=== PATIENT | female | born 1975 | race Two or more races ===

== ENCOUNTER 2023-12-10 09:37 | Outpatient (REF) | payer OTHER, SELFPAY ==
[2023-12-11 01:50] LABS: CT PCR NOT DETECTED (Not Detect.); NG PCR NOT DETECTED (Not Detect.)
[2023-12-11 14:50] LABS: BV Int Neg Control Negative (Negative); BV Int Pos Control Positive (Positive)
[2023-12-17 22:08] LABS: HPV mRNA E6/E7 rflx Not Detected (Not Detected)
== END 2023-12-10 09:38 | disposition home or self-care (01) ==
LOC: HO.LAB 09:37
PROVIDERS: PCP Family Medicine; Visit Provider Advanced Practice Midwife
DX: Z01.419 Encounter for gynecological examination (general) (routine) without abnormal findings (principal); Z11.51 Encounter for screening for human papillomavirus (HPV); Z20.2 Contact with and (suspected) exposure to infections with a predominantly sexual mode of transmission; N95.1 Menopausal and female climacteric states; I10 Essential (primary) hypertension
CPT/HCPCS: 0353U; 87480; 87510; 87624; 87660; 88142

== ENCOUNTER 2023-12-10 09:37 | Outpatient (AMB) | payer OTHER, SELFPAY ==
--- NOTE | 2023-12-10 09:55 | MHC.OFFVIS ---
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 Support Manager Required: No Information Interpreted: clinical only Contract Administration Coordinator: Contract Administration Coordinator Present Allergies No Known Allergies Allergy (Verified 12/10/23 10:06) Medication List - Last Reconciled 12/10/23 by Evonne Lauren CNM atenolol 50 mg PO DAILY buspirone 5 mg PO BID hydroxyzine HCl 25 mg PO BEDTIME lisinopril 5 mg PO DAILY Is last menstrual period known: Yes (09/21/23) Do you need a note to return to daycare/school/sports/work: No HPI 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 Harris and his group until he left pre pandemic she sees Dr. Virginia Joiner at [facility] in [place] for primary care she has been on blood pressure medicine for couple of years and her goal is to get off of it she has been walking/running regularly to try and get healthier and eat healthier she has lifted weights in the past for exercise as well. She has been getting hot flashes and her last period was in September. She had very regular periods up until then she is monogamous in her relationship and has raised all of her children with her and has no worries but is open to testing with the Pap smear but declines blood work. 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 [facility] Medical History (Updated 12/10/23 @ 10:46 by Evonne Lauren CNM) Anxiety Migraines HTN (hypertension) History of gallbladder disease Surgical History (Updated 12/10/23 @ 10:10 by Jonny Souza [facility]) History of bilateral tubal ligation Female Reproductive History Menstrual Age of Menarche: 11 Duration of menses: 3-5 days control method: permanent sterilization Total pregnancies: 6 Full term: 4 Date of last pap smear: 11/05/21 (negative per patient) History of abnormal pap smear: Yes (1991) Physical Exam Vital Signs: Last Vital Signs BP 122/70 12/10/23 10:04 BMI result Body Mass Index 30.6 Const General: healthy appearing, comfortable, no acute distress, well developed and alert Nutritional Appearance: average body habitus Orientation/consciousness: patient oriented x3 Limitations: no limitations HEENT Head: Yes normocephalic Neck Neck: Yes normal visual inspection Chest Chest palpation & inspection: normal inspection of the chest Breast/axilla inspection: normal inspection of the breasts and normal inspection of the axillae Breast/axilla palpation: normal palpation of the breasts and normal palpation of the axillae Resp Effort & Inspection: normal respiratory effort GI Inspection: Yes normal to inspection, No Abdominal wall edema and No distended Palpation (GI): Soft to palpation and nontender Other: External exam within normal limits vagina pink moist cervix multiparous pink smooth healthy with very abundant clear mucus consistent with fertile mucus. (reviewed with patient). Uterus small mobile anteverted nontender adnexa nontender very good tone with Kegel. General: Yes bladder normal to palpation External Female Exam: normal external appearance and normal appearance of the urethra Speculum Exam - Vagina: normal appearance of the vagina, normal palpation and normal vaginal discharge Speculum Exam - Cervix: normal appearance of the cervix, normal palpation and nontender Bimanual exam- vagina & uterus: normal bimanual exam, normal palpation, uterine size normal, bladder normal to palpation, consistency normal, normal palpation, uterine mobility normal, uterine shape normal, No Cervical tenderness present, non-tender and no cervical motion tenderness Bimanual Exam- Adnexa, other: normal adnexae, no masses, normal and No adnexal tenderness Neuro General: patient oriented x3 Assessment & Plan Assessment & Plan (1) Cervical cancer screening: Comment: History 1 abnormal 1991; normal since; 1st Pap here done 12/10/2023. Code(s): Z12.4 - Encounter for screening for malignant neoplasm of cervix (2) Well woman exam with routine gynecological exam: Code(s): Z01.419 - Encounter for gynecological examination (general) (routine) without abnormal findings (3) Breast cancer screening: Code(s): Z12.39 - Encounter for other screening for malignant neoplasm of breast (4) Perimenopause: Code(s): N95.1 - Menopausal and female climacteric states (5) HTN (hypertension): Code(s): I10 - Essential (primary) hypertension Plan -----Discussed in this visit the following: healthy balanced diet, regular and consistent exercise, getting recommended health screens, doing the best she can for her particular health concerns, nicole exercises, pap smear screening and followup recommendations, mammography screening and SBE, normal changes in cycles in her life stage--- . Reviewed self-care reviewed Nicole's she is very good strength with them reviewed perimenopause in detail and she is not interested it any rate in any medicinal solution and it is her goal to get off of her blood pressure medicine as well. She has been on the blood pressure medicine for couple of years now. She is working to achieve her best health. 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 Be seeing her primary care provider at the end of the month as well. Orders: Orders MM tomosynthesis screening BI Today N95.1 - Menopausal and female climacteric states, Z01.419 - Encounter for gynecological examination (general) (routine) without abnormal findings, Z12.31 - Encounter for screening mammogram for malignant neoplasm of breast, Z12.39 - Encounter for other screening for malignant neoplasm of breast, Z12.4 - Encounter for screening for malignant neoplasm of cervix Coding Level of Care Code New Pt Prev Care 40-64y(86518) Diagnoses Cervical cancer screening Z12.4 Well woman exam with routine gynecological exam Z01.419 Breast cancer screening Z12.39 Perimenopause N95.1 HTN (hypertension) I10
[2023-12-10 10:04] VITALS: BP 122/70; BMI 30.6
== END 2023-12-10 10:47 | disposition home or self-care (01) ==
LOC: HO.HWSM 09:38
PROVIDERS: PCP Family Medicine; Visit Provider Advanced Practice Midwife
DX: Z12.4 Encounter for screening for malignant neoplasm of cervix (principal); Z01.419 Encounter for gynecological examination (general) (routine) without abnormal findings; Z12.39 Encounter for other screening for malignant neoplasm of breast; N95.1 Menopausal and female climacteric states; I10 Essential (primary) hypertension
CPT/HCPCS: 99386

== ENCOUNTER 2024-02-19 07:59 | Outpatient (REF) | payer OTHER, SELFPAY | END 2024-02-19 08:00 | disposition home or self-care (01) | LOC: HO.MAMMO 07:59 | PROVIDERS: PCP Family Medicine; Visit Provider Advanced Practice Midwife | DX: Z12.31 Encounter for screening mammogram for malignant neoplasm of breast (principal) | CPT/HCPCS: 77063; 77067 ==

== ENCOUNTER → 2024-02-19 08:15 | Outpatient (BNV) | payer OTHER, SELFPAY | PROVIDERS: PCP Family Medicine; Visit Provider Radiology Diagnostic Radiology | DX: Z12.31 Encounter for screening mammogram for malignant neoplasm of breast (principal) | CPT/HCPCS: 77063; 77067 ==

== ENCOUNTER 2024-12-11 13:51 | Outpatient (REF) | payer OTHER, SELFPAY ==
--- OUTSIDE RECORDS SUMMARY | 2024-12-11 16:06 | XMS_ITS | Clinical Summary ---
Author Organization [facility] ity Address [address] [place] [address] Care Team Providers Care Supervisor Curing Room Name Role Phone Unavailable Primary Care Provider [...] Procedure Name Priority Date/Time Associated Diagnosis Comments [facility] SCREENING DIGITAL Routine 07/13/2020 3:24 PM EDT Encounter for screening mammogram for malignant neoplasm of breast from Last 3 Months or Most Recently Relevant to Health Maintenance Results * [facility] SCREENING DIGITAL (07/13/2020 3:24 PM EDT) Anatomical Region Laterality Modality Mammography 07/13/2020 10:5 2 AM EDT Narrative 07/13/2020 3:24 PM EDT [facility] Diagnostic Imaging Department [address] [place] [address] Patient: ??ERICA CHÁVEZ ?/Age/Sex: 1975 - 44 - F Unit#: ??[id number] ? Location/Status: ??SPDIMAM/REG CLI ? Mnemonic/Ordering Site: ??DIGSC/SPMAM Ordering Physician: ??MOMO CHANDLER MD [facility] Screening Digital - 07/13/20 - 1111 EXAM: [facility] Screening Digital EXAM DATE AND TIME: 07/13/2020 11:12 AM HISTORY: ??Annual screening mammography. ??Family history of breast carcinoma in a nonspecified relative. ??Intermittent left lateral breast pain without palpable abnormality. COMPARISON: ??06/22/2017 TECHNIQUE: CC and MLO views of both breasts were obtained using full field digital mammography. Bilateral digital breast tomosynthesis was performed in the MLO projection. Computer aided detection with the [employer].2Zidoff eCommerce was employed. TISSUE DENSITY: d. The breasts [...] Routine screening mammogram BILATERAL in 1 year. 41655, 32805 3341F, 7025F Dictating Physician: ??OLENA EAST MD Electronically Signed by: ??OLENA EAST MD Dic Date/Time: ??07/13/20 1518 Sign date/Time: ??07/13/20 1524 Procedure Note Miryam East MD - 09/25/2022 [facility] Diagnostic Imaging Department [address] [place] [address] Patient: ERICA CHÁVEZ /Age/Sex: 1975 - 44 - F Unit#: [id number] Location/Status: [facility] CLI Mnemonic/Ordering Site: [facility] Ordering Physician: MOMO CHANDLER MD [facility] Screening Digital - 07/13/20 - 1111 EXAM: [facility] Screening Digital EXAM DATE AND TIME: 07/13/2020 11:12 AM HISTORY: Annual screening mammography. Family history of breastcarcinoma in a nonspecified relative. Intermittent left lateral breast pain withoutpalpable abnormality. COMPARISON: 06/22/2017 TECHNIQUE: CC and MLO views of both breasts were obtained using fullfield digital mammography. Bilateral digital breast tomosynthesis was performedin the MLO projection. Computer aided detection with the Zvents 7.2-VisualXcriptas employed. TISSUE DENSITY: d. The breasts are [...] Routine screening mammogram BILATERAL in 1 year. 68724, 50852 3341F, 7025F Dictating Physician: OLENA EAST MD Electronically Signed by: OLENA EAST MD Dic Date/Time: 07/13/20 1518 Sign date/Time: 07/13/20 1524 us Momo Chandler MD IMG BI PROCEDURES Final Re sult from Last 3 Months or Most Recently Relevant to Health Maintenance
== END 2024-12-11 13:52 | disposition home or self-care (01) ==
LOC: HO.LAB 13:51
PROVIDERS: PCP Family Medicine; Visit Provider Obstetrics & Gynecology
DX: Z13.89 Encounter for screening for other disorder (principal)

== ENCOUNTER 2024-12-11 13:51 | Outpatient (AMB) | payer OTHER, SELFPAY ==
--- NOTE | 2024-12-11 13:58 | A.OFFVIS_ITS ---
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 Complaining of infrequent menses Over the last year associated with hot flashes Last Pap/HPV was negative in 12/28 Last Mammogram was BI-RADS 1 in 02/27 Last Colonoscopy was in 09/29, the recommendation was to repeat in 7 years according to the patient, no records available [facility] Medical History Anxiety Migraines HTN (hypertension) History of gallbladder disease Surgical History History of bilateral tubal ligation Family History Maternal Aunt Breast cancer Female Reproductive History Menstrual Age of Menarche: 11 Date of last menstrual period: 05/17/24 Total pregnancies: 6 Full term: 4 Ab induced: 1 Ab spontaneous: 1 Date of last pap smear: 12/10/23 (negative pap smear, negative hpv ) Date of Mammogram: 02/19/24 Review of Systems Const All systems reviewed & are unremarkable except as noted in HPI and below Card Reports as per HPI Resp Reports as per HPI GI Reports as per HPI and Reports no additional complaints Reports as per HPI Physical Exam Const General: cooperative, healthy appearing and comfortable Chest Chest palpation & inspection: normal inspection of the chest and normal palpation of entire chest wall Breast/axilla inspection: normal inspection of the breasts and normal inspection of the axillae Breast/axilla palpation: normal palpation of the breasts, normal palpation of the axillae and no axillary lymphadenopathy Resp Effort & Inspection: normal respiratory effort Auscultation: clear to auscultation bilaterally Percussion: percussion normal Cardio Palpation: normal PMI Rate: regular rate Rhythm: regular rhythm Heart sounds: no murmurs and no rubs Peripheral pulses: Peripheral pulses 2+ throughout GI Inspection: Yes normal to inspection Palpation (GI): Soft to palpation, nontender, no guarding, not rigid and No hepatosplenomegaly present Percussion: Yes normal to percussion Auscultation: normal bowel sounds Rectal Exam - Female: deferred General: Yes bladder normal to palpation External Female Exam: No lesion Speculum Exam - Vagina: normal appearance of the vagina, normal palpation, normal vaginal discharge and not erythematous Speculum Exam - Cervix: normal appearance of the cervix and normal palpation Bimanual exam- vagina & uterus: normal bimanual exam, normal palpation, uterine size normal, bladder normal to palpation, consistency normal and normal palpation Bimanual Exam- Adnexa, other: normal adnexae, no masses and no tenderness Assessment & Plan Assessment & Plan (1) Abnormal uterine bleeding: Code(s): N93.9 - Abnormal uterine and vaginal bleeding, unspecified Category: Medical Plan: Screening mammogram. GC and chlamydia taken CBC, TSH, HCG, FSH/LH and pelvic ultrasound ordered. Discussed with the patient the different causes of abnormal bleeding including thyroid disorders, uterine and ovarian pathology, endometrial hyperplasia, carcinoma and other potential causes. Discussed with the patient the work up including CBC (to r/o anemia), TSH, FSH/LH, pelvic Ultrasound, endometrial biopsy to r/o endometrial pathology. All questions answered and the patient verbalized understanding. Instructed the patient to schedule an appointment for an endometrial biopsy in 2 weeks. (2) Well woman exam with routine gynecological exam: Code(s): Z01.419 - Encounter for gynecological examination (general) (routine) without abnormal findings Category: Medical Plan: Co testing not indicated this year. Counseled the patient about the recommended dietary allowance of 1200 mg of Calcium & 600 IU of vitamin D. Mammogram ordered. The patient was instructed to perform monthly self-breast exams and schedule annual exam in a year. All questions answered and the patient verbalized understanding. Orders: Orders Complete Blood Count no Diff Today N93.9 - Abnormal uterine and vaginal bleeding, unspecified HCG Quantitative Today N93.9 - Abnormal uterine and vaginal bleeding, unspecified US pelvic and transvaginal Today N93.9 - Abnormal uterine and vaginal bleeding, unspecified TSH reflex Free T4 Today N93.9 - Abnormal uterine and vaginal bleeding, unspecified Lutenizing Hormone Today N93.9 - Abnormal uterine and vaginal bleeding, unspecified Follicle Stimulating Hormone Today N93.9 - Abnormal uterine and vaginal bleeding, unspecified MM screening mammo BI Today Z12.31 - Encounter for screening mammogram for malignant neoplasm of breast Coding Level of Care Code Est Pt Level 3 (26063) Est Pt Prev Care 40-64y(16202) Diagnoses Abnormal uterine bleeding N93.9 Well woman exam with routine gynecological exam Z01.419
[2024-12-11 14:09] VITALS: BP 120/72; BMI 30.6
--- OUTSIDE RECORDS SUMMARY | 2024-12-11 15:31 | XMS_ITS | Clinical Summary ---
Author Organization [facility] ity Address [address] [place] [address] Care Team Providers Care Manager It Training Name Role Phone Unavailable Primary Care Provider Unavailabl e Social History Tobacco Use Types Packs/Day Years Used Date Smoking Tobacco: Never Assessed Comments Unknown Sex and Gender Information Value Date Recorded Sex Assigned at Not on file Legal Sex Female 8:51 AM EST Gender Identity Not on file Sexual Orientation Not on file Plan of Treatment Health Maintenance Due Date Last Done Comments DTaP,Tdap,and Td Vaccines (1 - Tdap) 1993 Hepatitis B Vaccines (1 of 3 - 19+ 3-dose series) 1993 Cervical Cancer Screening: P ap Smear 1995 Breast Cancer Screening 07/13/2022 07/13/2020 Colorectal Cancer Screening: Colonoscopy 09/09/2022 Depression Screening 09/09/2022 HIV Screening 09/09/2022 Hepatitis C Screening 09/09/2022 Social Influencers of Health Screening 09/09/2022 COVID-19 Vaccine ( - 2023-2 5 season) 2024 Influenza Vaccine (#1) 2024 Pneumococcal Vaccine: 50+ Ye ars (1 of 1 - PCV) 2024 Zoster Vaccines (1 of 2) 2024 HIB Vaccines Aged Out No longer eligi ble based on patient's age to complete this topic HPV Vaccines Aged Out No longer eligi ble based on patient's age to complete this topic Hepatitis A Vaccines Aged Out No long er eligible based on patient's age to complete this topic IPV Vaccines Aged Out No longer eligi ble based on patient's age to complete this topic MMR Vaccines Aged Out No longer eligi ble based on patient's age to complete this topic Meningococcal ACWY Vaccine Aged Out N o longer eligible based on patient's age to complete this topic Meningococcal B Vacine Aged Out No lo nger eligible based on patient's age to complete this topic Pneumococcal Vaccine: Pediat rics (0 to 5 Years) and At-Risk Patients (6 to 64 Years) Aged Out No longer eligi ble based on patient's age to complete this topic RSV Immunization Patients Un kelvin 20 months Aged Out No longer eligible b ased on patient's age to complete this topic Varicella Vaccines Aged Out No longer eligible based on patient's age to complete this topic Procedures Procedure Name Priority Date/Time Associated Diagnosis Comments [facility] SCREENING DIGITAL Routine 07/13/2020 3:24 PM EDT Encounter for screening mammogram for malignant neoplasm of breast from Last 3 Months or Most Recently Relevant to Health Maintenance Results * [facility] SCREENING DIGITAL (07/13/2020 3:24 PM EDT) Anatomical Region Laterality Modality Mammography 07/13/2020 10:5 2 AM EDT Narrative 07/13/2020 3:[address] [facility] Diagnostic Imaging Department [address] [place] [address] Patient: ??ERICA CHÁVEZ ?/Age/Sex: 1975 - 44 - F Unit#: ??[id number] ? Location/Status: ??SPDIMAM/REG CLI ? Mnemonic/Ordering Site: ??DIGSC/SPMAM Ordering Physician: ??MOMO CHANDLER MD [facility] Screening Digital - 07/13/20 - 1111 EXAM: [facility] Screening Digital EXAM DATE AND TIME: 07/13/2020 11:12 AM HISTORY: ??Annual screening mammography. ??Family history of breast carcinoma in a nonspecified relative. ??Intermittent left lateral breast pain without palpable abnormality. COMPARISON: ??06/22/2017 TECHNIQUE: CC and MLO views of both breasts were obtained using full field digital mammography. Bilateral digital breast tomosynthesis was performed in the MLO projection. Computer aided detection with the Risk Ident.2Daegis was employed. TISSUE DENSITY: d. The breasts are extremely dense, which lowers the sensitivity of mammography. FINDINGS: No suspicious masses, grouped microcalcifications, or areas of architectural distortion are seen. The skin and vascularity are unremarkable. IMPRESSION: Stable mammographic appearance of the breasts. ??No evidence of malignancy is seen. A negative mammogram in the presence of a clinically suspicious palpable abnormality does not preclude the possibility of malignancy or alter the indications for biopsy. BI-RADS: ??Category 1: Negative RECOMMENDATION(S): 1: Routine screening mammogram BILATERAL in 1 year. 30851, 73185 3341F, 7025F Dictating Physician: ??OLENA EAST MD Electronically Signed by: ??OLENA EAST MD Dic Date/Time: ??07/13/20 1518 Sign date/Time: ??07/13/20 1524 Procedure Note Miryam East MD - 09/25/2022 [facility] Diagnostic Imaging Department [address] [place] [address] Patient: ERICA CHÁVEZ /Age/Sex: 1975 - 44 - F Unit#: [id number] Location/Status: [facility] CLI Mnemonic/Ordering Site: [facility] Ordering Physician: MOMO CHANDLER MD [facility] Screening Digital - 07/13/20 - 1111 EXAM: [facility] Screening Digital EXAM DATE AND TIME: 07/13/2020 11:12 AM HISTORY: Annual screening mammography. Family history of breastcarcinoma in a nonspecified relative. Intermittent left lateral breast pain withoutpalpable abnormality. COMPARISON: 06/22/2017 TECHNIQUE: CC and MLO views of both breasts were obtained using fullfield digital mammography. Bilateral digital breast tomosynthesis was performedin the MLO projection. Computer aided detection with the [employer] 7.2-ShopSquad/Ownzaas employed. TISSUE DENSITY: d. The breasts are extremely dense, which lowers the sensitivity of mammography. FINDINGS: No suspicious masses, grouped microcalcifications, or areas ofarchitectural distortion are seen. The skin and vascularity are unremarkable. IMPRESSION: Stable mammographic appearance of the breasts. No evidence of malignancyis seen. A negative mammogram in the presence of a clinically suspicious palpable abnormality does not preclude the possibility of malignancy or alter the indications for biopsy. BI-RADS: Category 1: Negative RECOMMENDATION(S): 1: Routine screening mammogram BILATERAL in 1 year. 11203, 98801 3341F, 7025F Dictating Physician: OLENA EAST MD Electronically Signed by: OLENA EAST MD Dic Date/Time: 07/13/20 1518 Sign date/Time: 07/13/20 1524 us Momo Chandler MD IMG BI PROCEDURES Final Re sult from Last 3 Months or Most Recently Relevant to Health Maintenance
== END 2024-12-11 14:23 | disposition home or self-care (01) ==
PROVIDERS: PCP Family Medicine; Visit Provider Obstetrics & Gynecology
DX: Z01.419 Encounter for gynecological examination (general) (routine) without abnormal findings (principal); N93.9 Abnormal uterine and vaginal bleeding, unspecified
CPT/HCPCS: 99213; 99396; 99459

== ENCOUNTER 2024-12-11 14:25 | Outpatient (REF) | payer OTHER, SELFPAY ==
[2024-12-11 14:56] LABS: Hematocrit 37.5 % (37.0-47.0); Hemoglobin 12.4 g/dl (12.0-16.0); Mean Corpuscular HGB Conc 33.1 g/dl (31.0-35.0); Mean Corpuscular Volume 81.7 fL (80.0-98.0); Mean Platelet Volume 10.2 fL (9.4-12.3); Platelet Count 237 X10*3/uL (160-400); Red Blood Count 4.59 X10*6/uL (4.20-5.50); Red Cell Distribution Width 13.2 % (11.0-16.0); White Blood Count 6.8 X10*3/uL (4.8-10.8)
[2024-12-11 15:52] LABS: HCG Quantitative < 2 mIU/mL; TSH reflex Free T4 1.32 uIU/mL (0.32-4.0)
[2024-12-11 18:41] LABS: CT PCR NOT DETECTED (Not Detect.); NG PCR NOT DETECTED (Not Detect.)
[2024-12-12 09:28] LABS: Follicle Stimulating Hormone 15.7 mIU/mL; Lutenizing Hormone 29.9 mIU/mL
== END 2024-12-11 14:26 | disposition home or self-care (01) ==
LOC: HO.LNP 14:25
PROVIDERS: Visit Provider Obstetrics & Gynecology
DX: N93.9 Abnormal uterine and vaginal bleeding, unspecified (principal)
CPT/HCPCS: 83001; 83002; 84443; 84702; 85027; 87491; 87591

== ENCOUNTER 2025-01-01 14:32 | Outpatient (REF) | payer OTHER, SELFPAY ==
--- NOTE | ~2025-01-01 | US_ITS ---
CLINICAL HISTORY: N93.9 - Abnormal uterine and vaginal bleeding, unspecified Ultrasound pelvis transabdominal and transvaginal. COMPARISON: None Technique: Real time sonographic imaging, including color-flow imaging, was performed by the computer science professor. Multiple labor representative static images were saved for review. FINDINGS: Anteverted uterus measures 9.4 x 5.2 x 5.8 cm. Hypoechoic shadowing fibroid measuring 1.4 x 5 x 1.7 cm along the uterine fundus. Hypoechoic fibroid along the uterine fundus measuring 2.6 x 2.4 x 2.3 cm. Hypoechoic myometrial fibroid measuring 1.1 x 0.9 x 1.0 cm along the uterine fundus. Fibroid measuring 2.1 x 1.9 x 1.9 cm along the uterine body. Fibroid measuring 2.5 x 2.4 x 2.1 cm along the uterine fundus. Endometrium: 8 mm, within normal limits for a premenopausal patient. Nabothian cysts present. Right ovary measures 1.4 x 2.5 x 1.4 cm. Normal color Doppler. No right adnexal mass identified. Dominant right cyst/follicle measuring up to 0.9 cm. Left ovary appears normal and measures 2.1 x 2.5 x 2.4 cm. No left adnexal mass identified. No free fluid identified in the pelvic cul-de-sac. IMPRESSION: 1. No evidence of ovarian torsion. 2. Fibroid uterus. This document has been electronically signed by: Kaveh Ward MD on 01/01/2025 16:12:45
== END 2025-01-01 14:33 | disposition home or self-care (01) ==
LOC: HO.US 14:32
PROVIDERS: PCP Family Medicine; Visit Provider Obstetrics & Gynecology
DX: N93.9 Abnormal uterine and vaginal bleeding, unspecified (principal)
CPT/HCPCS: 76830; 76856

== ENCOUNTER → 2025-01-01 14:34 | Outpatient (BNV) | payer OTHER, SELFPAY | PROVIDERS: PCP Family Medicine; Visit Provider Radiology Diagnostic Radiology | DX: N93.9 Abnormal uterine and vaginal bleeding, unspecified (principal) | CPT/HCPCS: 76830; 76856 ==

== ENCOUNTER 2025-01-05 13:04 | Outpatient (AMB) | payer OTHER, SELFPAY ==
--- NOTE | 2025-01-05 13:19 | MHC.OFFVIS ---
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) Accompanied by: Self / Same As Patient Allergies No Known Allergies Allergy (Verified 01/05/25 13:19) Is last menstrual period known: Yes Last menstrual period: 12/05/24 Post menopausal: No Patient : No HPI Comments Details: Presenting for EMB [facility] Medical History Anxiety Migraines HTN (hypertension) History of gallbladder disease Surgical History History of bilateral tubal ligation Family History Maternal Aunt Breast cancer Female Reproductive History Menstrual Age of Menarche: 11 Duration of menses: 3-5 days Date of last menstrual period: 12/05/24 control method: none Review of Systems Const All systems reviewed & are unremarkable except as noted in HPI and below Reports as per HPI and Reports no additional complaints GI Reports no additional complaints Reports no additional complaints Office Procedures Endometrial Biopsy Details: The patient was counseled regarding the indication and benefits of endometrial sampling to rule out endometrial pathology including not limited to endometrial hyperplasia or endometrial cancer and others; The alternatives (Either do nothing vs. hysteroscopy D&C) & the risks were discussed with the patient including but not limited: pain, uterine perforation, bleeding, infection, possible injury to bladder, bowel, ureter, possible need for blood transfusion with all its possible risks. The patient verbalized understanding all questions answered and signed consent. Urine test done in the office was negative The patient was placed into the dorsal lithotomy position; a speculum was inserted in the vagina. Using aseptic technique for the procedure, the cervix was cleansed with Betadine. The anterior lip of the cervix was grasped with a single tooth tenaculum. The uterus was sounded to 7 cm with a 4 mm Pipelle was used. Tissues samples were obtained and placed in formalin, in a patient labeled container and sent to the pathology department. At the end of the procedure, there was minimal bleeding noted The patient tolerated the procedure well and was discharged in good condition with the following instructions: Nothing in the vagina until the bleeding stops. No sex until the bleeding stops, to call if any of the following occurs: fever (>100.4), flu-like symptoms, abdominal pain, heavy bleeding, four smelling vaginal discharge. The patient was instructed to schedule a Follow up appointment in 2 weeks to discuss pathology results of the biopsy and treatment options. This note was generated with a voice recognition program. Some errors may have been overlooked during the review of this note. Sometimes these errors may affect the content or meaning of a given sentence. 59199-[id number] Biopsy Assessment & Plan Assessment & Plan (1) Abnormal uterine bleeding: Code(s): N93.9 - Abnormal uterine and vaginal bleeding, unspecified Category: Medical Plan: EMB done, see procedure Orders: Orders AMB Endometrial Biopsy Today N93.9 - Abnormal uterine and vaginal bleeding, unspecified Coding Level of Care Code Procedure Only Diagnoses Abnormal uterine bleeding N93.9 CPT Codes Endometrial Biopsy - CPT: 10425-Hqkamxovnmq Biopsy ([id number])
--- OUTSIDE RECORDS SUMMARY | 2025-01-05 15:19 | XMS_ITS | Clinical Summary ---
Author Organization [facility] ity Address [address] [place] [address] Care Team Providers Care Negative Developer Name Role Phone Unavailable Primary Care Provider [...] Procedure Name Priority Date/Time Associated Diagnosis Comments [facility] SCREENING DIGITAL Routine 07/13/2020 3:24 PM EDT Encounter for screening mammogram for malignant neoplasm of breast from Last 3 Months or Most Recently Relevant to Health Maintenance Results * [facility] SCREENING DIGITAL (07/13/2020 3:24 PM EDT) Anatomical Region Laterality Modality Mammography 07/13/2020 10:5 2 AM EDT Narrative 07/13/2020 3:24 PM EDT [facility] Diagnostic Imaging Department [address] [place] [address] Patient: ??ERICA CHÁVEZ ?/Age/Sex: 1975 - 44 - F Unit#: ??[id number] ? Location/Status: ??SPDIMAM/REG CLI ? Mnemonic/Ordering Site: ??DIGSC/SPMAM Ordering Physician: ??MOMO CHANDLER MD [facility] [place] Digital - 07/13/20 - 1111 EXAM: [facility] [place] Digital EXAM DATE AND TIME: 07/13/2020 11:12 AM HISTORY: ??Annual screening mammography. ??Family history of breast carcinoma in a nonspecified relative. ??Intermittent left lateral breast pain without palpable abnormality. COMPARISON: ??06/22/2017 TECHNIQUE: CC and MLO views of both breasts were obtained using full field digital mammography. Bilateral digital breast tomosynthesis was performed in the MLO projection. 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 TISSUE DENSITY: d. The breasts [...] Routine screening mammogram BILATERAL in 1 year. 31284, 03477 3341F, 7025F Dictating Physician: ??OLENA EAST MD Electronically Signed by: ??OLENA EAST MD Dic Date/Time: ??07/13/20 1518 Sign date/Time: ??07/13/20 1524 Procedure Note Miryam East MD - 09/25/2022 [facility] Diagnostic Imaging Department [address] [place] [address] Patient: ERICA CHÁVEZ /Age/Sex: 1975 - 44 - F Unit#: [id number] Location/Status: [facility] CLI Mnemonic/Ordering Site: [facility] Ordering Physician: MOMO CHANDLER MD [facility] [place] Digital - 07/13/20 - 1111 EXAM: [facility] [place] Scre[place] Digital EXAM DATE AND TIME: 07/13/2020 11:12 AM HISTORY: Annual screening mammography. Family history of breastcarcinoma in a nonspecified relative. Intermittent left lateral breast pain withoutpalpable abnormality. COMPARISON: 06/22/2017 TECHNIQUE: CC and MLO views of both breasts were obtained using fullfield digital mammography. Bilateral digital breast tomosynthesis was performedin the MLO projection. Computer aided detection with the [employer] 7.2-THERAVECTYSas employed. TISSUE DENSITY: d. The breasts are [...] Routine screening mammogram BILATERAL in 1 year. 83736, 15718 3341F, 7025F Dictating Physician: OLENA EAST MD Electronically Signed by: OLENA EAST MD Dic Date/Time: 07/13/20 1518 Sign date/Time: 07/13/20 1524 us Momo Chandler MD IMG BI PROCEDURES Final Re sult from Last 3 Months or Most Recently Relevant to Health Maintenance
== END 2025-01-05 14:05 | disposition home or self-care (01) ==
LOC: HO.HWS 13:05
PROVIDERS: PCP Family Medicine; Visit Provider Obstetrics & Gynecology
DX: N93.9 Abnormal uterine and vaginal bleeding, unspecified (principal)
CPT/HCPCS: 58100

== ENCOUNTER 2025-01-05 13:04 | Outpatient (REF) | payer OTHER, SELFPAY ==
--- OUTSIDE RECORDS SUMMARY | 2025-01-05 17:09 | XMS_ITS | Clinical Summary ---
Author Organization [facility] ity Address [address] [place] [address] Care Team Providers Care Buhr Mill Operator Name Role Phone Unavailable Primary Care Provider [...] Procedure Name Priority Date/Time Associated Diagnosis Comments [facility] SCREENING DIGITAL Routine 07/13/2020 3:24 PM EDT Encounter for screening mammogram for malignant neoplasm of breast from Last 3 Months or Most Recently Relevant to Health Maintenance Results * [facility] SCREENING DIGITAL (07/13/2020 3:24 PM EDT) Anatomical Region Laterality Modality Mammography 07/13/2020 10:5 2 AM EDT Narrative 07/13/2020 3:24 PM EDT [facility] Diagnostic Imaging Department [address] [place] [address] Patient: ??ERICA CHÁVEZ ?/Age/Sex: 1975 - 44 - F Unit#: ??[id number] ? Location/Status: ??SPDIMAM/REG CLI ? Mnemonic/Ordering Site: ??DIGSC/SPMAM Ordering Physician: ??MOMO CHANDLER MD [facility] Screening Digital - 07/13/20 - 1111 EXAM: [facility] Screening Digital EXAM DATE AND TIME: 07/13/2020 11:12 AM HISTORY: ??Annual screening mammography. ??Family history of breast carcinoma in a nonspecified relative. ??Intermittent left lateral breast pain without palpable abnormality. COMPARISON: ??06/22/2017 TECHNIQUE: CC and MLO views of both breasts were obtained using full field digital mammography. Bilateral digital breast tomosynthesis was performed in the MLO projection. 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 TISSUE DENSITY: d. The breasts [...] Routine screening mammogram BILATERAL in 1 year. 75064, 75933 3341F, 7025F Dictating Physician: ??OLENA EAST MD Electronically Signed by: ??OLENA EAST MD Dic Date/Time: ??07/13/20 1518 Sign date/Time: ??07/13/20 1524 Procedure Note Miryam East MD - 09/25/2022 [facility] Diagnostic Imaging Department [address] [place] [address] Patient: ERICA CHÁVEZ /Age/Sex: 1975 - 44 - F Unit#: [id number] Location/Status: [facility] CLI Mnemonic/Ordering Site: [facility] Ordering Physician: MOMO CHANDLER MD [facility] Screening Digital - 07/13/20 - 1111 EXAM: [facility] Screening Digital EXAM DATE AND TIME: 07/13/2020 11:12 AM HISTORY: Annual screening mammography. Family history of breastcarcinoma in a nonspecified relative. Intermittent left lateral breast pain withoutpalpable abnormality. COMPARISON: 06/22/2017 TECHNIQUE: CC and MLO views of both breasts were obtained using fullfield digital mammography. Bilateral digital breast tomosynthesis was performedin the MLO projection. 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 TISSUE DENSITY: d. The breasts are [...] Routine screening mammogram BILATERAL in 1 year. 93307, 59412 3341F, 7025F Dictating Physician: OLENA EAST MD Electronically Signed by: OLENA EAST MD Dic Date/Time: 07/13/20 1518 Sign date/Time: 07/13/20 1524 us Momo Chandler MD IMG BI PROCEDURES Final Re sult from Last 3 Months or Most Recently Relevant to Health Maintenance
== END 2025-01-05 13:05 | disposition home or self-care (01) ==
LOC: HO.LNP 13:04
PROVIDERS: PCP Family Medicine; Visit Provider Obstetrics & Gynecology
DX: N93.9 Abnormal uterine and vaginal bleeding, unspecified (principal)
CPT/HCPCS: 58100; 88305

== ENCOUNTER 2025-01-08 10:11 | Outpatient (AMB) | payer OTHER, SELFPAY ==
--- NOTE | 2025-01-08 10:30 | MHC.OFFVIS ---
Intake Visit Reasons: pelvic exam/pelvic pain ok per Dr. 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 No fever or chills, no nausea or vomiting. PFSH Medical History Anxiety Migraines HTN (hypertension) History of gallbladder disease Surgical History History of bilateral tubal ligation Family History Maternal Aunt Breast cancer Female Reproductive History Menstrual Age of Menarche: 11 Review of Systems Const All systems reviewed & are unremarkable except as noted in HPI and below Physical Exam General: Yes no CVA tenderness External Female Exam: normal external appearance and normal appearance of the urethra Speculum Exam - Vagina: normal appearance of the vagina, normal palpation, no lesions and no masses Speculum Exam - Cervix: normal appearance of the cervix, normal palpation, no lesions, no masses and nontender Bimanual exam- vagina & uterus: normal bimanual exam, normal palpation, uterine size normal, normal palpation, uterine shape normal, No Cervical tenderness present and non-tender Bimanual Exam- Adnexa, other: normal adnexae Back/Spine/Pelvis Back: no CVA tenderness Assessment & Plan Assessment & Plan (1) Abnormal uterine bleeding: Code(s): N93.9 - Abnormal uterine and vaginal bleeding, unspecified Category: Medical Plan: UPT done in the office was negative. Discussed with the patient the finding on pelvic exam, no active bleeding. Since there is no cervical motion tenderness, uterine or and or adnexal tenderness, explained to the patient that at this point there is no evidence of endometritis. Instructions given to patient to call in case pain persists or gets worse, fever above 100.4, heavy vaginal bleeding. All questions answered, the patient verbalized understanding Coding Level of Care Code Est Pt Level 3 (56333) Diagnoses Abnormal uterine bleeding N93.9
--- OUTSIDE RECORDS SUMMARY | 2025-01-08 11:34 | XMS_ITS | Clinical Summary ---
Author Organization [facility] ity Address [address] [place] [address] Care Team Providers Care Sports Marketer Name Role Phone Unavailable Primary Care Provider [...] Procedure Name Priority Date/Time Associated Diagnosis Comments [facility] SCREENING DIGITAL Routine 07/13/2020 3:24 PM EDT Encounter for screening mammogram for malignant neoplasm of breast from Last 3 Months or Most Recently Relevant to Health Maintenance Results * [facility] SCREENING DIGITAL (07/13/2020 3:24 PM EDT) Anatomical Region Laterality Modality Mammography 07/13/2020 10:5 2 AM EDT Narrative 07/13/2020 3:24 PM EDT [facility] Diagnostic Imaging Department [address] [place] [address] Patient: ??ERICA CHÁVEZ ?/Age/Sex: 1975 - 44 - F Unit#: ??[id number] ? Location/Status: ??SPDIMAM/REG CLI ? Mnemonic/Ordering Site: ??DIGSC/SPMAM Ordering Physician: ??MOMO CHANDLER MD [facility] Screening Digital - 07/13/20 - 1111 EXAM: [facility] Screening Digital EXAM DATE AND TIME: 07/13/2020 11:12 AM HISTORY: ??Annual screening mammography. ??Family history of breast carcinoma in a nonspecified relative. ??Intermittent left lateral breast pain without palpable abnormality. COMPARISON: ??06/22/2017 TECHNIQUE: CC and MLO views of both breasts were obtained using full field digital mammography. Bilateral digital breast tomosynthesis was performed in the MLO projection. Computer aided detection with the [employer].2[employer] was employed. TISSUE DENSITY: d. The breasts [...] Routine screening mammogram BILATERAL in 1 year. 03692, 99566 3341F, 7025F Dictating Physician: ??OLENA EAST MD Electronically Signed by: ??OLENA EAST MD Dic Date/Time: ??07/13/20 1518 Sign date/Time: ??07/13/20 1524 Procedure Note Miryam East MD - 09/25/2022 [facility] Diagnostic Imaging Department [address] [place] [address] Patient: ERICA CHÁVEZ /Age/Sex: 1975 - 44 - F Unit#: [id number] Location/Status: [facility] CLI Mnemonic/Ordering Site: [facility] Ordering Physician: MOMO CHANDLER MD [facility] Screening Digital - 07/13/20 - 1111 EXAM: [facility] Screening Digital EXAM DATE AND TIME: 07/13/2020 11:12 AM HISTORY: Annual screening mammography. Family history of breastcarcinoma in a nonspecified relative. Intermittent left lateral breast pain withoutpalpable abnormality. COMPARISON: 06/22/2017 TECHNIQUE: CC and MLO views of both breasts were obtained using fullfield digital mammography. Bilateral digital breast tomosynthesis was performedin the MLO projection. 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 TISSUE DENSITY: d. The breasts are [...] Routine screening mammogram BILATERAL in 1 year. 69750, 77401 3341F, 7025F Dictating Physician: OLENA EAST MD Electronically Signed by: OLENA EAST MD Dic Date/Time: 07/13/20 1518 Sign date/Time: 07/13/20 1524 us Momo Chandler MD IMG BI PROCEDURES Final Re sult from Last 3 Months or Most Recently Relevant to Health Maintenance
== END 2025-01-08 11:09 | disposition home or self-care (01) ==
LOC: HO.HWS 10:11
PROVIDERS: PCP Family Medicine; Visit Provider Obstetrics & Gynecology
DX: N93.9 Abnormal uterine and vaginal bleeding, unspecified (principal)
CPT/HCPCS: 99213

== ENCOUNTER 2025-02-02 08:05 | Outpatient (AMB) | payer OTHER, SELFPAY ==
--- NOTE | 2025-02-02 08:07 | MHC.OFFVIS ---
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 The following workup was done.: H&H= 12.4/37.5 TSH, hCG, GC and chlamydia were negative. FSH/LH =15.7/29.9 Endometrial biopsy pathology showed the following: Scant benign secretory endometrium, and benign endocervical glandular and squamous epithelium; no atypia or carcinoma Co testing was done in 12/28 was negative. Mammogram was done in 02/27 was BI-RADS 1. Pelvic ultrasound showed the following: Anteverted uterus measures 9.4 x 5.2 x 5.8 cm. Hypoechoic shadowing fibroid measuring 1.4 x 5 x 1.7 cm along the uterine fundus. Hypoechoic fibroid along the uterine fundus measuring 2.6 x 2.4 x 2.3 cm. Hypoechoic myometrial fibroid measuring 1.1 x 0.9 x 1.0 cm along the uterine fundus. Fibroid measuring 2.1 x 1.9 x 1.9 cm along the uterine body. Fibroid measuring 2.5 x 2.4 x 2.1 cm along the uterine fundus. Endometrium: 8 mm, within normal limits for a premenopausal patient. Nabothian cysts present. Right ovary measures 1.4 x 2.5 x 1.4 cm. Normal color Doppler. No right adnexal mass identified. Dominant right cyst/follicle measuring up to 0.9 cm. Left ovary appears normal and measures 2.1 x 2.5 x 2.4 cm. No left adnexal mass identified. No free fluid identified in the pelvic cul-de-sac. [facility] Medical History Anxiety Migraines HTN (hypertension) History of gallbladder disease Surgical History History of bilateral tubal ligation Family History Maternal Aunt Breast cancer Female Reproductive History Menstrual Age of Menarche: 11 Review of Systems Const All systems reviewed & are unremarkable except as noted in HPI and below Reports as per HPI and Reports no additional complaints GI Reports no additional complaints Reports no additional complaints Assessment & Plan Assessment & Plan (1) Perimenopause: Code(s): N95.1 - Menopausal and female climacteric states Category: Medical Plan: Discussed with the patient the elevated LH, biochemical menopause. (2) Abnormal uterine bleeding: Code(s): N93.9 - Abnormal uterine and vaginal bleeding, unspecified Category: Medical Plan: Discussed with the patient the results of the work up done and options of treatment including Lysteda, cyclic progesterone, Mirena IUD, endometrial ablation and hysterectomy. All pros, cons, risks and benefits if each option was discussed with the patient and the patient decided to proceed with expectant management for the time being. All questions answered the patient verbalized understanding. (3) Uterine myoma: Code(s): D25.9 - Leiomyoma of uterus, unspecified Category: Medical Plan: Discussed with the patient the findings on pelvic ultrasound & the risk of myosarcoma; in addition reviewed with the patient that malignancy and pre malignancy cannot be ruled out without hysterectomy for pathological evaluation ; furthermore, explained to the patient the limitation of pelvic ultrasound and endometrial biopsy in the setting. Discussed with the patient the options of treatment including expectant management versus hysterectomy; the pros and cons, risks benefits of each approach were discussed with the patient including the fact that in cases of myosarcoma, surgical treatment can lead to early diagnosis and positively affects the prognosis; after further discussion, the patient decided to proceed with expectant management. Will repeat pelvic ultrasound periodically. Instructions given to patient to call in case any of the following occurs: pressure symptoms, abnormal uterine bleeding, pelvic pain; and to schedule a six-months pelvic ultrasound (order placed) and a follow-up appointment . All questions answered, the patient verbalized understanding and agreed with the plan . Orders: Orders US pelvic and transvaginal 6 Months D25.9 - Leiomyoma of uterus, unspecified Coding Level of Care Code Est Pt Level 3 (50674) Diagnoses Perimenopause N95.1 Abnormal uterine bleeding N93.9 Uterine myoma D25.9
--- OUTSIDE RECORDS SUMMARY | 2025-02-02 08:13 | XMS_ITS | Clinical Summary ---
Author Organization [facility] ity Address [address] [place] [address] Care Team Providers Care Comfort Station Attendant Name Role Phone Unavailable Primary Care Provider [...] Influencers of Health Screening 09/09/2022 COVID-19 Vaccine (1 - 2023-2 5 season) 2024 Pneumococcal Vaccine: 50+ Ye ars (1 of 1 - PCV) 2024 Zoster Vaccines (1 of 2) 2024 Influenza Vaccine (Season Ended) 2025 HIB Vaccines Aged Out No longer eligi [...] age to complete this topic Meningococcal B Vaccine Aged Out No l onger eligible based on patient's age to complete [...] Procedure Name Priority Date/Time Associated Diagnosis Comments [facility] SCREENING DIGITAL Routine 07/13/2020 3:24 PM EDT Encounter for screening mammogram for malignant neoplasm of breast from Last 3 Months or Most Recently Relevant to Health Maintenance Results * [facility] SCREENING DIGITAL (07/13/2020 3:24 PM EDT) Anatomical Region Laterality Modality Mammography 07/13/2020 10:5 2 AM EDT Narrative 07/13/2020 3:24 PM EDT [facility] Diagnostic Imaging Department [address] [place] [address] Patient: ??KOURTNEY CHÁVEZL ?/Age/Sex: 1975 - 44 - F Unit#: ??[id number] ? Location/Status: ??SPDIMAM/REG CLI ? Mnemonic/Ordering Site: ??DIGSC/SPMAM Ordering Physician: ??MOMO CHANDLER MD [facility] Screening Digital - 07/13/20 - 1111 EXAM: [facility] Screening Digital EXAM DATE AND [...] MLO projection. 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 TISSUE DENSITY: d. The breasts [...] Routine screening mammogram BILATERAL in 1 year. 34787, 70703 3341F, 7025F Dictating Physician: ??OLENA EAST MD Electronically Signed by: ??OLENA EAST MD Dic Date/Time: ??07/13/20 1518 Sign date/Time: ??07/13/20 1524 Procedure Note Miryam East MD - 09/25/2022 [facility] Diagnostic Imaging Department [address] [place], [place] [id number] Patient: LUPEERICA /Age/Sex: 1975 - 44 - F Unit#: [id number] Location/Status: [facility]/REG CLI Mnemonic/Ordering Site: [facility] Ordering Physician: MOMO CHANDLER MD [facility] Screening Digital - 07/13/20 - 1111 EXAM: [facility] Screening Digital EXAM DATE AND TIME: 07/13/2020 11:12 AM HISTORY: Annual screening mammography. Family history of breastcarcinoma in a nonspecified relative. Intermittent left lateral breast pain withoutpalpable abnormality. COMPARISON: 06/22/2017 TECHNIQUE: CC and MLO views of both breasts were obtained using fullfield digital mammography. Bilateral digital breast tomosynthesis was performedin the MLO projection. 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 TISSUE DENSITY: d. The breasts are [...] Routine screening mammogram BILATERAL in 1 year. 56529, 03235 3341F, 7025F Dictating Physician: OLENA EAST MD Electronically Signed by: OLENA EAST MD Dic Date/Time: 07/13/20 1518 Sign date/Time: 07/13/20 1524 us Momo Chandler MD IMG BI PROCEDURES Final Re sult from Last 3 Months or Most Recently Relevant to Health Maintenance
== END 2025-02-02 08:24 | disposition home or self-care (01) ==
LOC: HO.HWS 08:05
PROVIDERS: PCP Family Medicine; Visit Provider Obstetrics & Gynecology
DX: N95.1 Menopausal and female climacteric states (principal); N93.9 Abnormal uterine and vaginal bleeding, unspecified; D25.9 Leiomyoma of uterus, unspecified
CPT/HCPCS: 99213

== ENCOUNTER 2025-04-14 08:18 | Outpatient (AMB) | payer OTHER, SELFPAY ==
--- OUTSIDE RECORDS SUMMARY | 2025-04-14 08:24 | XMS_ITS ---
Author Name [facility] Organization Unknown History of Medication Use Medication Directions Dispensed Refills Start Date End Date Stat lisinopril 07/14/2018 completed hydroxyzine HCl complete d bupropion HCl completed buspirone completed
--- OUTSIDE RECORDS SUMMARY | 2025-04-14 08:24 | XMS_ITS | Data Portability ---
Author Organization [facility] [employer] Address [address] [place] [address] Assessment Encounter Date Assessment Date Assessment LastModified by Organization Details LastModified Time 03/23/2025 03/23/2025 The patient consented to the IV infusion. The 22 gauge IV was placed in the patient's left antecubital space after 1 attempts. The patient tolerated the procedure well. Complications: none. The patient received a total of 1 liter of 0.9% normal saline. The IV was discontinued after the infusion and the catheter was examined and was intact. This visit is being performed by Dinorah Slater RN under the direct supervision of Abhay Coates DO and they are physically present in the office and available for immediate consultation. The treatment plan was determined by the supervising provider. [email or web address] Not available 03/23/2025 08:45:04 Plan of Treatment Reminders Order Date Submit Date Provider Last Modified By Organization Details Last Modified Time Details Appointments None record ed. Lab None record ed. Referral None record ed. Procedures None record ed. Surgeries None record ed. Imaging None record ed. Medication Orders None record ed. Patient TargetsNo targets recorded. Patient InstructionsNo instructions recorded. Reason for Referral None Reported. Medical Equipment None Reported. Medications Name Sig Start Date Stop Date Status Note LastModified by Organization Details LastModified Time trazodone 50 mg tablet TAKE 1/2-1 TABLET (25-50MG) BY MOUTH DAILY NEEDED AT BEDTIME active Not Available Not Available No t Available buspirone 10 mg tablet TAKE 1 TABLET BY MOUTH TWICE A DAY active Not Available Not Available No t Available gabapentin 300 mg capsule TAKE 1 CAPSULE BY MOUTH EVERYDAY AT BEDTIME FOR 30 DAYS FOR NEUROPATHY active Not Available Not Available N ot Available bisacodyl 5 mg tablet,delay ed release 4 TABLETS ORALLY DIRECTED 1 DAY active Not Available Not Available No t Available lisinopril 5 mg tablet TAKE 1 TABLET BY MOUTH EVERY DAY active Not Available Not Available No t Available hydroxyzine HCl 10 mg tablet TAKE 1-2 TABLETS BY MOUTH AT NIGHT NEEDED active Not Available Not Available No t Available bupropion HCl XL 300 mg 24 hr tablet, extended release TAKE 1 TABLET BY MOUTH EVERY DAY IN THE MORNING active Not Available Not Available No t Available GaviLyte-G 236 gram-22.74 gram-6.74 gram-5.86 gram oral solution 4000ML ORALLY DIRECTED 1 DAYS active Not Available Not Available No t Available Vitals None Recorded Social History None recorded. Functional Status None recorded. Mental Status None recorded. Family History Nothing Reported. Medical History No medical history recorded. Gynecological HistoryNo gynecological history recorded. Obstetrics History GPAL:G 0 P 0 0 0 0 Immunizations Vaccine Type Date Status Note Provider Nam e and Address Organization Details Recorded Time Tdap 0 completed Not Available [facility] 03/23/2025 07:54:26 Influenza, split virus, trivalent, PF 5 completed Not Available [facility] 03/23/2025 07:54:26 Td (adult), 2 Lf tetanus toxoid, preservative free, adsorbed 2 completed Not Available [facility] 03/23/2025 07:54:26 MMR 3 completed Not Available [facility] 03/23/2025 07:54:26 Past Encounters Encounter ID Performer Location Encounter Start Date Encounter Closed Date Diagnosis/Indication Diagnosis SNOMED-CT Code Diagnosis ICD10 Code Diagnosis Note [id number] Dinorah Slater RN Main Office [address] [place] [address] [address] [facility] Singh [phone] 03/23/2025 07:52:23 03/23/2025 08:53:26 Dehydration 52006036 E86.0 Health Concerns Section Related Observation LastModified by Organization Detai ls LastModified Time None Recorded Concern Status LastModified by Organization Details LastModified Time None Recorded Advance Directives Directive None Recorded Payers Insurance Date Sequence Insurance Name Policy Number Policy Fleming Covered Member ID Fleming Member ID Guarantor Name 03/23/2025 1 *SELF PAY* Sara Chávez Notes Date Note Type Note Provider Name and Address Organization Details Recorded Time 03/23/2025 text/html The patient is h ere for elective IV hydration, to treat dehydration.They will be receiving alleviate.Add ons: none.They have been screened for contraindications to IV therapy including previous adverse reaction to IV therapy. Abhay Coates, DO [address] [place] [address] [address], [place], [address], [facility] [place] [facility] 03/23/2025 11:48:31 OBGyn Episode No OBEpisode recorded.
--- OUTSIDE RECORDS SUMMARY | 2025-04-14 08:24 | XMS_ITS | Clinical Summary ---
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 Name Role Phone Unavailable Primary Care Provider [...] Vaccines (1 of 2) 2024 Influenza Vaccine (#1) 2025 HIB Vaccines Aged Out No longer [...] Procedure Name Priority Date/Time Associated Diagnosis Comments [facility] SCREENING DIGITAL Routine 07/13/2020 3:24 PM EDT Encounter for screening mammogram for malignant neoplasm of breast from Last 3 Months or Most Recently Relevant to Health Maintenance Results * [facility] SCREENING DIGITAL (07/13/2020 3:24 PM EDT) Anatomical Region Laterality Modality Mammography 07/13/2020 10:5 2 AM EDT Narrative 07/13/2020 3:24 PM EDT [facility] Diagnostic Imaging Department [address] [place] [id number] Patient: LUPEERICA /Age/Sex: 1975 - 44 - F Unit#: [id number] Location/Status: [facility]/REG CLI Mnemonic/Ordering Site: [facility] Ordering Physician: MOMO CHANDLER MD [facility] Screening Digital - 07/13/20 - 1110 EXAM: [facility] Screening Digital EXAM DATE AND TIME: 07/13/2020 11:12 AM HISTORY: Annual screening mammography. Family history of breast carcinoma in a nonspecified relative. Intermittent left lateral breast pain without palpable abnormality. COMPARISON: 06/22/2017 TECHNIQUE: CC and MLO views of both breasts were obtained using full field digital mammography. Bilateral digital breast tomosynthesis was performed in the MLO projection. 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 TISSUE DENSITY: d. The breasts are extremely dense, which lowers the sensitivity of mammography. FINDINGS: No suspicious masses, grouped microcalcifications, or areas of architectural distortion are seen. The skin and vascularity are unremarkable. IMPRESSION: Stable mammographic appearance of the breasts. No evidence of malignancy is seen. A negative mammogram in the presence of a clinically suspicious palpable abnormality does not preclude the possibility of malignancy or alter the indications for biopsy. BI-RADS: Category 1: Negative RECOMMENDATION(S): 1: Routine screening mammogram BILATERAL in 1 year. [address]3528, [address]25 3341F, 7025F Dictating Physician: OLENA EAST MD Electronically Signed by: OLENA EAST MD Dic Date/Time: 07/13/20 1518 Sign date/Time: 07/13/20 1524 Procedure Note Miryam East MD - 09/25/2022 [facility] Diagnostic Imaging Department [address] [place] [id number] Patient: ERICA CHÁVEZ /Age/Sex: 1975 - 44 - F Unit#: [id number] Location/Status: [facility]/REG CLI Mnemonic/Ordering Site: [facility] Ordering Physician: MOMO CHANDLER MD [facility] Screening Digital - 07/13/20 - 1111 EXAM: [facility] Screening Digital EXAM DATE AND TIME: 07/13/2020 11:12 AM HISTORY: Annual screening mammography. Family history of breastcarcinoma in a nonspecified relative. Intermittent left lateral breast pain withoutpalpable abnormality. COMPARISON: 06/22/2017 TECHNIQUE: CC and MLO views of both breasts were obtained using fullfield digital mammography. Bilateral digital breast tomosynthesis was performedin the MLO projection. 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 TISSUE DENSITY: d. The breasts are [...] Routine screening mammogram BILATERAL in 1 year. [address], [address]327 3341F, 7025F Dictating Physician: OLENA EAST MD Electronically Signed by: OLENA EAST MD Dic Date/Time: 07/13/20 1518 Sign date/Time: 07/13/20 1524 Momo Chandler MD IMG BI PROCEDURES Final Re sult from Last 3 Months or Most Recently Relevant to Health Maintenance
--- NOTE | 2025-04-14 08:36 | A.OFFVIS_ITS ---
VS Expanded 04/14/25 08:37 04/14/25 08:49 Height 4 ft 11.5 in 4 ft 11.5 in Weight 156 lb 4.924 oz 156 lb BMI 31.0 31.0 Intake Visit Reasons: Obesity Allergies No Known Allergies Allergy (Verified 02/02/25 08:08) Nutrition Presentation Details: Pt presents for MNT for obesity Pt reports having reduced appetite for meals during the day with increased appetite in the evening. Wants to work on meal planning reports taking magnesium with vitamin D over the counter Physical activity : starting to walk 15-30 min 3 times a week Pt reports having noticing sensitivity :bloating /pain in stomach when having lactose containing foods - does better with lactose free dairy food frequency fish : 0/wk fruits: 0-1/d vegetables:not including fluids: water, coffee in AM , soda rarely working on reducing fried foods HEZ-Bbwuzpe-Nq.Víctoror Equation Height: 4 ft 11.5 in Weight: 156 lb Resting Metabolic Rate: 1244.46 Calculated Activity Level: Sedentary Calories Needed to Maintain Weight: 1493.35 Diagnosis Nutrition problem #1: overweight/obesity As related to (etiology) #1: diagnosis As evidenced by (sign/symptom) #1: knowledge deficit of diet Monitoring/Goals Nutrition problem monitoring: level of knowledge/skill, total PRO intake, total CHO intake, weight and oral fluids Nutrition goal/outcome: wt loss 5lbs in 2 months Outcome progress: verbalized understanding Learning/Education Readiness to learn: good Stages of change: preparation Educational materials provided: Yes (meal planning) PFSH Medical History Anxiety Migraines HTN (hypertension) History of gallbladder disease Surgical History History of bilateral tubal ligation Family History Maternal Aunt Breast cancer Female Reproductive History Menstrual Age of Menarche: 11 Assessment & Plan Assessment & Plan (1) Obesity (BMI 30.0-34.9): Code(s): E66.811 - Obesity, class 1 Category: Medical Plan: Wt: 71 Kg ( 04/30 ) Est kcal needs as per MSJ: 1500 (40% carb, 30% protein/fat) Est fluid needs as per 25-30 ml/d: 2100 Est prot per day as per 1 g/kg bw: 71 Recommend fiber intake : 8-10 g per day and gradually increase to 25-28 g per day for women and 35-38 g for men or as tolerated Recommend sodium intake per day : less than 2300 mg Educated patient on: ( R = reviewed V = verbalizes understanding N/R = needs review N/A = not applicable * Food sources of carbohydrate, adequate serving sizes and its role in various health conditions: R * Differences between complex carbohydrates a simple carbohydrates, role of fiber in diet: R * Lean protein sources of foods: R * Differences between types of fats and role in diet (mono on saturated fat f atty acids, saturated fatty acids, trans fats): R V N/R * Food sources of sodium in salt and healthy modifications for heart health in kidney health: R V R/V * Vitamins and minerals: R V N/R * Healthy plate method concept: R * Physical activity: Benefits a precaution: R V N/R Patient Instructions: Work on having 3 meals/day see meal plan consisting of 30-45 g carb per meal , 2-3 oz prot per meal , choosing complex carb practice mindful eating Coding Level of Care Code Nutr Indiv Intake (74030) Diagnoses Obesity (BMI 30.0-34.9) E66.811 Time Spent (min) 30
[2025-04-14 08:37] VITALS: BMI 31.0
[2025-04-14 08:49] VITALS: BMI 31.0
== END 2025-04-14 09:15 | disposition home or self-care (01) ==
LOC: HO.ENCR 08:18
PROVIDERS: PCP Family Medicine; Visit Provider Dietitian, Registered
DX: E66.811 Obesity, class 1 (principal)

== ENCOUNTER → 2025-04-14 08:18 | Outpatient (BNVA) | payer OTHER, SELFPAY | PROVIDERS: PCP Family Medicine; Visit Provider Dietitian, Registered | DX: Z71.3 Dietary counseling and surveillance (principal); E66.811 Obesity, class 1 | CPT/HCPCS: 97802 ==